=== PATIENT | female | born 1995 | race Caucasian/White ===

== ENCOUNTER 2018-01-28 13:12 | Emergency (ER) | payer BC, OTHER ==
[~2018-01-28] VITALS: Ht 180.3 cm; Wt 61.4 kg
[2018-01-28 13:14] VITALS: BP 164/102
[2018-01-28] MEDS ORDERED: BACITRACIN ZINC OINT 500U/GM, 0.9 GM ONE (15:10)
== END 2018-01-28 15:21 | disposition home or self-care (01) ==
LOC: ED 15:01
DX: L02.413 Cutaneous abscess of right upper limb (principal); L02.416 Cutaneous abscess of left lower limb
CPT/HCPCS: 93005; 99283

== ENCOUNTER 2018-02-07 23:24 | Emergency (ER) | payer BC ==
[~2018-02-07] VITALS: Ht 180.3 cm; Wt 64.2 kg
[2018-02-07] MEDS ORDERED: SEPTRA (23:35)
[2018-02-07] MEDS ORDERED: CEPH-368 PO (23:35)
[2018-02-08] MEDS ORDERED: BACITRACIN ZINC OINT 500U/GM, 0.9 GM ONE (00:40)
[2018-02-08 00:57] VITALS: BP 142/88
== END 2018-02-08 01:03 | disposition home or self-care (01) ==
LOC: ED 02-08 00:30
DX: L03.113 Cellulitis of right upper limb (principal); F11.10 Opioid abuse, uncomplicated
CPT/HCPCS: 99283

== ENCOUNTER 2018-03-08 16:10 | Emergency (ER) | payer BC ==
[~2018-03-08] VITALS: Ht 182.9 cm; Wt 67.2 kg
[~2018-03-08 16:10] MED LIST: CEPH-368 PO; SEPTRA
[2018-03-08 16:12] VITALS: BP 159/100
[2018-03-08] MEDS ORDERED: LIDOCAINE-MPF 2% ,5ML ONE (17:15)
[2018-03-08] MEDS ORDERED: LIDOCAINE 2%, 20ML SQ ONE (17:30)
== END 2018-03-08 18:54 | disposition home or self-care (01) ==
LOC: ED 17:16
DX: L03.114 Cellulitis of left upper limb (principal); L03.113 Cellulitis of right upper limb; L02.414 Cutaneous abscess of left upper limb
CPT/HCPCS: 10060; 99283

== ENCOUNTER 2018-03-11 15:17 | Emergency (ER) | payer BC ==
[~2018-03-11] VITALS: Ht 182.9 cm; Wt 67.4 kg
[2018-03-11 15:27] VITALS: BP 135/85
== END 2018-03-11 16:43 | disposition home or self-care (01) ==
LOC: ED 16:37
DX: L02.414 Cutaneous abscess of left upper limb (principal); F11.20 Opioid dependence, uncomplicated
CPT/HCPCS: 99282